=== PATIENT | male | born 1940 | race Caucasian/White ===

== ENCOUNTER 2018-10-22 18:46 | Inpatient (IN) ==
[2018-10-22] MEDS ORDERED: Heparin - SQ 10,000 UNITS/ML Vial ONE (19:06)
[2018-10-22 19:08] LABS: Baso # (Auto) 0.1 th/mm3 (0.0-0.2); Baso % (Auto) 0.6 % (0.0-2.0); Eos # (Auto) 0.3 th/mm3 (0.0-0.4); Eos % (Auto) 2.2 % (0.0-4.0); Hematocrit 23.5 % (39.0-51.0); Hemoglobin 7.7 gm/dL (13.0-17.0); Lymph # (Auto) 3.5 th/mm3 (1.0-4.8); Lymph % (Auto) 24.9 % (9.0-44.0); Mean Corpuscular HGB Conc 32.9 % (32.0-36.0); Mean Corpuscular Hemoglobin 29.7 pg (27.0-34.0); Mean Corpuscular Volume 90.4 fL (80.0-100.0); Mean Platelet Volume 7.7 fL (7.0-11.0); Mono % (Auto) 7.3 % (0.0-8.0); Neut # (Auto) 9.1 th/mm3 (1.8-7.7); Platelet Count 119 th/mm3 (150-450); Red Cell Distribution Width 16.1 % (11.6-17.2); White Blood Count 13.9 th/mm3 (4.0-11.0)
[2018-10-22 19:29] LABS: INR 3.2 Ratio; Prothrombin Time 32.6 sec (9.8-11.6)
[2018-10-22 19:39] LABS: ABG Base Excess -16.3 mmol/L (-2-2); ABG PCO2 63 mmHg (38-42); ABG PO2 114 mmHG (61-120)
--- NOTE | 2018-10-22 19:57 | XR ---
EXAM DATE: 10/22/2018 7:38 PM EST AGE/SEX: 89 years / Male INDICATIONS: Trauma Alert CLINICAL DATA: This is the patient's initial encounter. Patient reports that signs and symptoms have been present for 1 day and indicates a pain score of Nonresponsive. MEDICAL/SURGICAL HISTORY: Non-responsive. Non-responsive. COMPARISON: No prior exams available for comparison. FINDINGS: Examination of the pelvis demonstrates no evidence of fracture or dislocation. Bony mineralization i s normal. There is no widening of the sacroiliac joints. No foreign body is identified. CONCLUSION: No acute fracture identified. Film partially obscured by artifacts. Electronically signed by: Juan A Hardy MD Board Certified Radiologist 10/22/2018 7:55 PM EST
--- NOTE | 2018-10-22 19:59 | XR ---
EXAM DATE: 10/22/2018 7:31 PM EST AGE/SEX: 89 years / Male INDICATIONS: Trauma Alert CLINICAL DATA: This is the patient's initial encounter. Patient reports that signs and symptoms have been present for 1 day and indicates a pain score of Nonresponsive. MEDICAL/SURGICAL HISTORY: Non-responsive. Non-responsive. COMPARISON: [facility] [place], PELVIS AP 1V, 10/22/2018. . FINDINGS: There is a fracture of the distal left femur. Distal fracture fragments are not seen on this single f ilm. Tourniquet has been applied to the distal femur. CONCLUSION: Distal femur fracture, displaced with tourniquets applied. Electronically signed by: Juan A Hardy MD Board Certified Radiologist 10/22/2018 7:58 PM EST
[2018-10-22 20:13] LABS: ABG Base Excess -7.2 mmol/L (-2-2); ABG PCO2 61 mmHg (38-42); ABG PO2 78 mmHG (61-120)
--- NOTE | 2018-10-22 20:35 | XR ---
EXAM DATE: 10/22/2018 8:10 PM EST AGE/SEX: 89 years / Male INDICATIONS: Trauma Alert CLINICAL DATA: This is the patient's initial encounter. Patient reports that signs and symptoms have been present for 1 day and indicates a pain score of Nonresponsive. MEDICAL/SURGICAL HISTORY: Non-responsive. Non-responsive. COMPARISON: No prior exams available for comparison. FINDINGS: Endotracheal tube in good position. Left central line in superior vena cava. Consolidation right aaron hilar region could represent contusion or aspiration. Heart size normal. No pneumothorax is seen. CONCLUSION: Support apparatus as above. Right perihilar consolidation. Electronically signed by: Juan A Hardy MD Board Certified Radiologist 10/22/2018 8:34 PM EST
[2018-10-22 20:54] LABS: ABG Base Excess -9.5 mmol/L (-2-2); ABG PCO2 66 mmHg (38-42); ABG PO2 64 mmHG (61-120)
[2018-10-22] MEDS ORDERED: EPINEPHrine PF/SF Inj 1 MG/ML Ampul I-OCULAR ONE (21:23)
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
[2018-10-22] MEDS ORDERED: Sodium Bicarbonate 8.4% Inj 50 MEQ/50 ML Syringe IV.CONT ONE (23:58)
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
[2018-10-23 02:05] VITALS: RESP 16
== END 2018-10-22 23:59 | disposition expired | DRG 957 ==
LOC: NEPI 18:46 → NEDA 20:37 → EDBD 20:37 → N03 21:05
PROVIDERS: ADMIT Surgery; ATTEND Surgery
CPT/HCPCS: 31500; 36430; 36556; 36569; 71010; 71045; 72170; 73551; 80048; 82805; 85025; 85610; 85730; 86850; 86900; 86901; 86920; 86923; 86927; 86965; 90774; 90784; 94002; 94656; 96374; 99291; C1014; C8952; C9503; G0390; J0171; J1644; J2250; J2370; P9016; P9017; P9035